=== PATIENT | female | born 1960 | race Caucasian/White ===

== ENCOUNTER 2016-07-17 17:55 | Inpatient (IN) ==
[2016-07-17] MEDS ORDERED: ATROVENT 0.02% NEB NEB STA (18:01)
[2016-07-17] MEDS ORDERED: ATROVENT 0.02% NEB NEB ONE (18:02)
--- NOTE | 2016-07-17 18:07 | ED.PDOC ---
General <LILIBETH BIRD - Last Filed: 07/17/16 20:47> Stated Complaint: short of air with productive cough of white phlegm and runny nose [End]1 day 98.8 102 24 91% 166/92 began using proair monday night used every four hours as prescribed Time Seen by Physician: 18:04 Mode of Arrival: Wheelchair Information Source: Patient Exam Limitations: No limitations Nursing and Triage Documentation Reviewed and Agree: No <ZULEIKA STANTON JR - Last Filed: 07/18/16 08:15> ED Provider: Dr. ZULEIKA STANTON JR ([facility] (ZULEIKA STANTON JR) Chief Complaint: Shortness of Air Primary Care [facility] ([place]OURTNEYLILIBETH GORDON) (ZULEIKA STANTON JR) Review of Systems - Review Of Systems Constitutional: Reports: Malaise Eyes: Reports: No symptoms Ears, Nose, Mouth, Throat: Reports: No symptoms Respiratory: Reports: Cough, Short of air, Wheezing Cardiac: Reports: No symptoms GI: Reports: No symptoms : Reports: No symptoms Musculoskeletal: Reports: No symptoms Skin: Reports: No symptoms Neurological: Reports: Anxiety, Emotional problems Endocrine: Reports: No symptoms Hematologic/Lymphatic: Reports: No symptoms All Other Systems: Other <ZULEIKA STANTON JR - Last Filed: 07/18/16 08:15> Past Medical History - Past Medical History Endocrine: Reports: Dyslipidemia Cardiovascular: Reports: Hypertension Respiratory: Reports: COPD, Asthma Hematological: Reports: Unknown Gastrointestinal: Reports: Unknown Genitourinary: Reports: Unknown Neuro/Psych: Reports: Unknown Musculoskeletal: Reports: Unknown Cancer: Reports: Unknown Last Menstrual Period: none Other Pertinent Past Medical History: loses control of her bladder whenshe coughs all over the place this morning - Surgical History General Surgical History: Reports: (x2 ), Other (breast surgery) - Family History Family History: Reports: Other (several family members with urti"cold" past month) - Social History Smoking Status: Current every day smoker, Heavy tobacco smoker Amount Smokes or Chewing Tobacco Used Daily: not for five houirs- note PFT statement allergic to albuterol patient agree Smoking Cessation Counseling Time: > 3 min - 10 min (but note is on albuterol MDI) Hx Substance Use: No Alcohol Screening: None <ZULEIKA STANTON JR - Last Filed: 07/18/16 08:15> Physical Exam - Physical Exam Appearance: Well-appearing, Obese Ill-appearing: Mild Pain Distress: Mild Eyes: XOCHITL, EOMI, Conjunctiva clear ENT: Ears normal, Nose normal, Oropharynx normal Neck: Supple Respiratory: Airway patent, Breath sounds equal, Breath sounds diminished, Rhonchi Cardiovascular: RRR, Pulses normal, No rub, No murmur GI/: Soft, Nontender, No masses, Bowel sounds normal, No Organomegaly Musculoskeletal: Normal strength, ROM intact, No edema, No calf tenderness Skin: Warm, Dry, Normal color Neurological: Sensation intact, Motor intact, Alert Psychiatric: Anxious <ZULEIKA STANTON JR Last Filed: 07/18/16 08:15> Interpretation - Radiology Interpretation Radiology Interpretation By: Radiologist Radiology Results: Negative Exam Interpreted: CT Scan <LILIBETH BIRD - Last Filed: 07/17/16 20:47> - Radiology Interpretation Radiology Interpretation By: ED Physician Radiology Results: Positive Exam Interpreted: CXR (hilar marking probably chronic) - EKG Interpretation Time of EKG #1: 18:29 Rate: Normal Rhythm: Sinus Ectopy: None [place]: NL ST Segment: Normal <ZULEIKA STANTON JR Last Filed: 07/18/16 08:15> Re-Evaluation - Re-Evaluation Time of Re-Evaluation: 19:10 Status: Improved (note pulse ox 93 on room air, patietn again without any leg pain or tenderness admits pain right lateral thigh this afternoon after sitting in a chair- better after lyingon her 's bed) <ZULEIKA STANTON JR - Last Filed: 07/18/16 08:15> Physician Notification - Case Discussed Physician Notified: dr [email or web address] Time of Notification: 20:47 <LILIBETH BIRD - Last Filed: 07/17/16 20:47> - Case Discussed Endorsed To/Discussed With: neda with dr oni dowling positive Time of Discussion: 19:07 <MAXIMINOZULEIKA FINE JR - Last Filed: 07/18/16 08:15> Critical Care Note - Critical Care Note Total Time (mins): 0 <MAXIMINOZULEIKA Rogers Last Filed: 07/18/16 08:15> Course - Course Hematology/Chemistry: 07/17/16 18:15 07/17/16 18:15 <LILIBETH BIRD - Last Filed: 07/17/16 20:47> - Course Hematology/Chemistry: 07/18/16 05:08 07/18/16 05:08 <ZULEIKA STANTON JR - Last Filed: 07/18/16 08:15> - Course Orders, Labs, Meds: Lab Review 07/17/16 07/17/16 17:57 18:15 WBC 11.16 H RBC 4.79 Hgb 14.5 Hct 44.8 MCV 93.5 MCH 30.3 MCHC 32.4 RDW Coeff of Malachi 13.3 Plt Count 367 Immature Gran % (Auto) 0.4 Neut % (Auto) 59.4 Lymph % (Auto) 30.3 [place] % (Auto) 8.3 Eos % (Auto) 0.7 Baso % (Auto) 0.9 Immature Gran # (Auto) 0.1 Neut # 6.6 Lymph # 3.4 [place] # 0.9 Eos # 0.1 Baso # 0.1 D-Dimer 489.78 H Puncture Site Rr O2 Saturation 91.0 L ABG pH 7.416 ABG pCO2 46.4 H ABG pO2 60.0 L ABG HCO3 29.8 H ABG Total CO2 31 H ABG Base Excess 5 H Gabriele Test + FiO2 % 21.0 Sodium 140 Potassium 3.7 Chloride 100 Carbon Dioxide 28 Anion Gap 15.7 BUN 9 Creatinine 0.79 Estimated GFR (MDRD) 76.00 BUN/Creatinine Ratio 11.39 Glucose 107 Calcium 9.4 Total Bilirubin 0.28 AST 17 ALT 24 Alkaline Phosphatase 90 Total Creatine Kinase 58 Troponin I < 0.0100 B-Natriuretic Peptide < 10 Total Protein 7.6 Albumin 3.7 Globulin 3.9 Albumin/Globulin Ratio 0.95 Orders Category Date Time Status ADMIT PATIENT INPATIENT .TO [facility] (MONITORED BED) ADMISSION 07/17/16 20: 48 Active ABG DRAW REQUEST Stat CARDIO 07/17/16 17:58 Completed EKG-(ED ONLY) Stat CARDIO 07/17/16 17:57 Completed NEBULIZER TREATMENT Routine CARDIO 07/17/16 20:50 Active NEBULIZER TREATMENT Stat CARDIO 07/17/16 18:01 Completed NEBULIZER TREATMENT Stat CARDIO 07/17/16 18:54 Completed OXYGEN Routine CARDIO 07/17/16 20:49 Active ACTIVITY .BR with BRP CARE 07/17/16 20:48 Completed INTAKE & OUTPUT Q8HR CARE 07/17/16 20:48 Completed NPO REMINDER: IMAGING ONCE CARE 07/17/16 19:05 Completed TELEMETRY MONITORING TELE CARE 07/17/16 20:48 Active VITAL SIGNS Q4HR CARE 07/17/16 20:48 Completed REGULAR DIET DIETARY 07/17/16 Breakfast Ordered OXYGEN [ED APPLY O2] .ONCE EMERGENCY 07/17/16 19:06 Active ABG Stat LAB 07/17/16 17:57 Completed B-TYPE NATRIURETIC PEPTIDE Stat LAB 07/17/16 18:15 Completed CBC W/ AUTO DIFF DAILY@0600 LAB 07/18/16 05:08 Completed CBC W/ AUTO DIFF DAILY@0600 LAB 07/19/16 06:00 Ordered CBC W/ AUTO DIFF DAILY@0600 LAB 07/20/16 06:00 Ordered CBC W/ AUTO DIFF DAILY@0600 LAB 07/21/16 06:00 Ordered CBC W/ AUTO DIFF DAILY@0600 LAB 07/22/16 06:00 Ordered CBC W/ AUTO DIFF DAILY@0600 LAB 07/23/16 06:00 Ordered CBC W/ AUTO DIFF DAILY@0600 LAB 07/24/16 06:00 Ordered CBC W/ AUTO DIFF DAILY@0600 LAB 07/25/16 06:00 Ordered CBC W/ AUTO DIFF DAILY@0600 LAB 07/26/16 06:00 Ordered CBC W/ AUTO DIFF DAILY@0600 LAB 07/27/16 06:00 Ordered CBC W/ AUTO DIFF DAILY@0600 LAB 07/28/16 06:00 Ordered CBC W/ AUTO DIFF DAILY@0600 LAB 07/29/16 06:00 Ordered CBC W/ AUTO DIFF DAILY@0600 LAB 07/30/16 06:00 Ordered CBC W/ AUTO DIFF DAILY@0600 LAB 07/31/16 06:00 Ordered CBC W/ AUTO DIFF DAILY@0600 LAB 08/01/16 06:00 Ordered CBC W/ AUTO DIFF DAILY@0600 LAB 08/02/16 06:00 Ordered CBC W/ AUTO DIFF DAILY@0600 LAB 08/03/16 06:00 Ordered CBC W/ AUTO DIFF DAILY@0600 LAB 08/04/16 06:00 Ordered CBC W/ AUTO DIFF DAILY@0600 LAB 08/05/16 06:00 Ordered CBC W/ AUTO DIFF DAILY@0600 LAB 08/06/16 06:00 Ordered CBC W/ AUTO DIFF Stat LAB 07/17/16 18:15 Completed COMPREHENSIVE METABOLIC PANEL DAILY@0600 LAB 07/18/16 05:08 Completed COMPREHENSIVE METABOLIC PANEL DAILY@0600 LAB 07/19/16 06:00 Ordered COMPREHENSIVE METABOLIC PANEL DAILY@0600 LAB 07/20/16 06:00 Ordered COMPREHENSIVE METABOLIC PANEL DAILY@0600 LAB 07/21/16 06:00 Ordered COMPREHENSIVE METABOLIC PANEL DAILY@0600 LAB 07/22/16 06:00 Ordered COMPREHENSIVE METABOLIC PANEL DAILY@0600 LAB 07/23/16 06:00 Ordered COMPREHENSIVE METABOLIC PANEL DAILY@0600 LAB 07/24/16 06:00 Ordered COMPREHENSIVE METABOLIC PANEL DAILY@0600 LAB 07/25/16 06:00 Ordered COMPREHENSIVE METABOLIC PANEL DAILY@0600 LAB 07/26/16 06:00 Ordered COMPREHENSIVE METABOLIC PANEL DAILY@0600 LAB 07/27/16 06:00 Ordered COMPREHENSIVE METABOLIC PANEL DAILY@0600 LAB 07/28/16 06:00 Ordered COMPREHENSIVE METABOLIC PANEL DAILY@0600 LAB 07/29/16 06:00 Ordered COMPREHENSIVE METABOLIC PANEL DAILY@0600 LAB 07/30/16 06:00 Ordered COMPREHENSIVE METABOLIC PANEL DAILY@0600 LAB 07/31/16 06:00 Ordered COMPREHENSIVE METABOLIC PANEL DAILY@0600 LAB 08/01/16 06:00 Ordered COMPREHENSIVE METABOLIC PANEL DAILY@0600 LAB 08/02/16 06:00 Ordered COMPREHENSIVE METABOLIC PANEL DAILY@0600 LAB 08/03/16 06:00 Ordered COMPREHENSIVE METABOLIC PANEL DAILY@0600 LAB 08/04/16 06:00 Ordered COMPREHENSIVE METABOLIC PANEL DAILY@0600 LAB 08/05/16 06:00 Ordered COMPREHENSIVE METABOLIC PANEL DAILY@0600 LAB 08/06/16 06:00 Ordered COMPREHENSIVE METABOLIC PANEL Stat LAB 07/17/16 18:15 Completed CREATINE KINASE Stat LAB 07/17/16 18:15 Completed D-DIMER Stat LAB 07/17/16 18:15 Completed TROPONIN I Stat LAB 07/17/16 18:15 Completed Albuterol Sulfate 0.042% Neb [Albuterol 0.042% Neb] MEDS 07/17/16 20:50 Active 1 vial NEB RTQ2H PRN Albuterol Sulfate 0.083% Neb [Albuterol 0.083% Neb] MEDS 07/17/16 18:28 Discontinued 1 vial NEB .STK-MED ONE Albuterol Sulfate 0.083% Neb [Albuterol 0.083% Neb] MEDS 07/17/16 18:54 Discontinued 1 vial NEB ONCE STA Atorvastatin Calcium [Lipitor] MEDS 07/18/16 09:00 Active 10 mg PO DAILY Azithromycin [Zithromax] MEDS 07/17/16 18:15 Discontinued 500 mg PO ONCE STA Ceftriaxone Sodium [Rocephin] 1 gm MEDS 07/18/16 09:00 Active 0.9 % Sodium Chloride [Sodium Chloride] 50 ml IV DAILY Enoxaparin Sodium [Lovenox] MEDS 07/17/16 21:00 Active 40 mg SUBCUT DAILY Ipratropium [place] 0.02% Neb [Atrovent 0.02% Neb] MEDS 07/17/16 18:02 Discontinued 1 vial NEB .STK-MED ONE Ipratropium [place] 0.02% Neb [Atrovent 0.02% Neb] MEDS 07/17/16 18:01 Discontinued 1 vial NEB ONCE STA Ipratropium/Albuterol Neb [Duoneb] MEDS 07/18/16 00:00 Active 1 vial NEB RTQ6H Methylprednisolone Sod Succ/Pf [Solu-Medrol 125 mg] MEDS 07/17/16 18:17 Discontinued 125 mg IVP ONCE STA Methylprednisolone Sod Succ/Pf [Solu-Medrol 40 mg] MEDS 07/18/16 00:00 Active 40 mg IVP Q6HR Sodium Chloride 0.9% [Sodium Chloride] 1,000 ml MEDS 07/17/16 21:00 Discontinued IV 75 mls/hr RESUSCITATION STATUS Routine OTHERS 07/17/16 20:48 Ordered CHEST, 1V AP ONLY Stat RADS 07/17/16 17:[address] CHEST PE PROTOCOL Stat RADS 07/17/16 19:04 Completed Medications Generic Name Dose Route Start Last Admin Trade Name Freq PRN Reason Stop Dose Admin Albuterol Sulfate 1 vial 07/17/16 20:50 Albuterol 0.042% Neb NEB RTQ2H PRN Wheezing Albuterol/Ipratropium 1 vial 07/18/16 00:00 07/18/16 04:57 Duoneb NEB 1 vial RTQ6H LIAT Administration Atorvastatin Calcium 10 mg 07/18/16 09:00 Lipitor PO DAILY LIAT Enoxaparin Sodium 40 mg 07/17/16 21:00 07/17/16 23:14 Lovenox SUBCUT 40 mg DAILY LIAT Administration Hydrochlorothiazide 25 mg 07/18/16 09:00 Hydrochlorothiazide PO DAILY LIAT Ceftriaxone Sodium 1 gm/ 50 mls @ 75 mls/hr 07/18/16 09:00 Sodium Chloride IV DAILY LIAT Multivitamins/Minerals 10 ml/ 1,010 mls @ 83 mls/hr 07/17/16 23:00 07/17/16 23:14 Potassium Chloride/Dextrose/ IV 83 mls/hr Sod Cl .[id number] LIAT Administration Lisinopril 20 mg 07/18/16 09:00 Zestril PO DAILY LIAT Methylprednisolone Sodium Succinate 40 mg 07/18/16 00:00 07/18/16 05:00 Solu-Medrol 40 Mg IVP 40 mg Q6HR LIAT Administration Discontinued Medications Generic Name Dose Route Start Last Admin Trade Name Freq PRN Reason Stop Dose Admin Albuterol Sulfate 1 vial 07/17/16 18:54 07/17/16 23:05 Albuterol 0.083% [facility] 07/17/16 18:55 Not Given ONCE STA Azithromycin 500 mg 07/17/16 18:15 07/17/16 18:43 Zithromax PO 07/17/16 18:16 500 mg ONCE STA Administration Sodium Chloride 1,000 mls @ 75 mls/hr 07/17/16 21:00 07/17/16 22:12 Sodium Chloride IV 75 mls/hr .[id number] LIAT Administration Ipratropium [place] 1 vial 07/17/16 18:01 07/17/16 18:30 Atrovent 0.02% [facility]ina [facility] 07/17/16 18:02 Not Given ONCE STA Methylprednisolone Sodium Succinate 125 mg 07/17/16 18:17 07/17/16 18:45 Solu-Medrol 125 Mg IVP 07/17/16 18:18 125 mg ONCE STA Administration (LILIBETH BIRD) (ZULEIKA STANTON JR) Vital Signs: Temp Pulse Resp BP Pulse Ox 07/17/16 17:55 98.8 F 102 H 24 166/92 H 91 L (LILIBETH BIRD) (ZULEIKA STANTON JR) Departure - Departure Time of Disposition: 20:47 Pt referred to PMD for follow-up: No Disposition Discussed With: Patient, Family <KOURTNEYLILIBETH CARPIO - Last Filed: 07/17/16 20:47> - Departure Pt referred to PMD for follow-up: No (hospitalist) Disposition Discussed With: Patient <ZULEIKA STANTON JR - Last Filed: 07/18/16 08:15> - Departure Disposition: ADMITTED INPATIENT Discharge Problem: COPD exacerbation Condition: Good Allergies/Adverse Reactions: Allergies Sulfa (Sulfonamide Antibiotics) Allergy (Severe, Verified 07/17/16 18:05) Anaphylaxis
[2016-07-17] MEDS ORDERED: ZITHROMAX PO STA (18:15)
[2016-07-17] MEDS ORDERED: SOLU-MEDROL 125 MG IVP STA (18:17)
[2016-07-17] MEDS ORDERED: ALBUTEROL 0.083% NEB NEB ONE (18:28)
[2016-07-17 18:30] LABS: ABG BASE EXCESS 5 (-2.0-2.0); ABG HCO3 29.8 (22.0-26.0); ABG PCO2 46.4 mmHg (35-45); ABG PH 7.416 (7.35-7.45); ABG TCO2 31 (22.0-28.0)
--- NOTE | 2016-07-17 18:47 | DI ---
EXAM: Chest one view HISTORY: Short of air, hypoxia COMPARISON: None TECHNIQUE: Single view of the chest was performed FINDINGS: The lungs are clear. There is no pleural effusion or pneumothorax. The heart is normal in size. The mediastinal contour is normal. There are no acute abnormalities of the bones. IMPRESSION: No acute cardiopulmonary process.
[2016-07-17 18:50] LABS: BASOPHILS # (AUTO) 0.1 K/uL (0-0.2); BASOPHILS % (AUTO) 0.9 % (0.0-3.0); EOSINOPHILS # (AUTO) 0.1 K/ul (0.0-0.7); EOSINOPHILS % (AUTO) 0.7 % (0.0-7.0); HEMATOCRIT 44.8 % (37.0-47.0); HEMOGLOBIN 14.5 g/dl (12.0-16.0); IMMATURE GRANULOCYTE % (AUTO) 0.4 % (0.0-5.0); LYMPHOCYTES # (AUTO) 3.4 K/uL (0.60-3.4); LYMPHOCYTES % (AUTO) 30.3 (10.0-50.0); MEAN CORPUSCULAR HEMOGLOBIN 30.3 pg (27.0-31.0); MEAN CORPUSCULAR HGB CONC 32.4 (31.8-35.4); MEAN CORPUSCULAR VOLUME 93.5 fl (81.0-99.0); MONOCYTES # (AUTO) 0.9 K/uL (0.4-2.0); MONOCYTES % (AUTO) 8.3 (0-10); NEUTROPHILS # (AUTO) 6.6 K/ul (2.0-6.9); NEUTROPHILS % (AUTO) 59.4; PLATELET COUNT 367 10^3/uL (140-440); RED BLOOD COUNT 4.79 10^6/ul (4.20-5.40); WHITE BLOOD COUNT 11.16 K/ul (4.6-10.2)
[2016-07-17] MEDS ORDERED: ALBUTEROL 0.083% NEB NEB STA (18:54)
[2016-07-17 18:55] LABS: ALANINE AMINOTRANSFERASE 24 U/L (12-78); ALBUMIN 3.7 g/dL (3.4-5.0); ALBUMIN/GLOBULIN RATIO 0.95; ALKALINE PHOSPHATASE 90 U/L (42-98); ANION GAP 15.7; ASPARTATE AMINO TRANSFERASE 17 U/L (15-37); BILIRUBIN,TOTAL 0.28 mg/dL (0.00-1.20); BLOOD UREA NITROGEN 9 mg/dL (7-18); BUN/CREATININE RATIO 11.39; CALCIUM 9.4 mg/dL (8.2-10.2); CARBON DIOXIDE 28 mmol/L (21-32); CHLORIDE 100 mmol/L (98-107); CREATINE KINASE 58 U/L; CREATININE 0.79 mg/dL (0.60-1.30); GLUCOSE 107 mg/dL (70-110); POTASSIUM 3.7 mmol/L (3.5-5.10); SODIUM 140 mmol/L (136-145); TOTAL PROTEIN 7.6 g/dL (6.4-8.2)
--- NOTE | 2016-07-17 20:28 | CT ---
EXAM: CT angiogram of the chest with intravenous contrast 07/17/2016. Multi planar reformatted micah ges obtained. MIP and three-dimensional reconstructed images provided HISTORY: Shortness of a air. Positive D-dimer COMPARISON: 07/17/2016 FINDINGS: The heart size appears within normal limits. No pericardial effusion. The aorta shows n o acute abnormality. There are no pulmonary arterial filling defects to suggest pulmonary embolus. Bilateral bronchial wall thickening. Correlate for bronchitis/bronchiolitis. No pulmonary consolidation, effusion or pneumothorax. Limited views of the upper abdomen show hepatic steatosis. IMPRESSION: 1. No pulmonary embolus. 2. Bilateral bronchial wall thickening. Correlate for bronchitis/bronchiolitis. 3. No focal pulmonary consolidation, effusion or pneumothorax.
[2016-07-17] MEDS ORDERED: ALBUTEROL 0.042% NEB NEB PRN (20:50)
[2016-07-17] MEDS ORDERED: SYMBICORT 160-4.5 MCG INHALER IH SCH (21:00)
[2016-07-17] MEDS ORDERED: SODIUM CHLORIDE 1,000 ML IV SCH (21:00)
[2016-07-17 22:02] VITALS: BMI 44.8
[2016-07-17] MEDS ORDERED: INFUVITE ADULT IV ONE (23:06)
[2016-07-17] MEDS: LOVENOX SUBCUT SCH (23:14)
[2016-07-17] MEDS: INFUVITE ADULT 10 ML in D5%-1/2NS-KCL 20 MEQ/L IV SOL 1,000 ML IV SCH (23:14)
[2016-07-17] MEDS ORDERED: DUONEB NEB ONE (23:17)
[2016-07-17] MEDS: DUONEB NEB SCH (23:19)
[2016-07-18] MEDS: SOLU-MEDROL 40 MG IVP SCH ×5 (00:52→23:44)
[2016-07-18] MEDS: DUONEB NEB SCH ×4 (04:57→23:20)
[2016-07-18 05:11] LABS: BASOPHILS % (AUTO) 0.3 % (0.0-3.0); HEMATOCRIT 42.2 % (37.0-47.0); HEMOGLOBIN 13.6 g/dl (12.0-16.0); IMMATURE GRANULOCYTE % (AUTO) 0.4 % (0.0-5.0); MEAN CORPUSCULAR HEMOGLOBIN 29.9 pg (27.0-31.0); MEAN CORPUSCULAR HGB CONC 32.2 (31.8-35.4); MEAN CORPUSCULAR VOLUME 92.7 fl (81.0-99.0); MONOCYTES # (AUTO) 0.1 K/uL (0.4-2.0); MONOCYTES % (AUTO) 0.6 (0-10); NEUTROPHILS # (AUTO) 8.6 K/ul (2.0-6.9); NEUTROPHILS % (AUTO) 88.7; PLATELET COUNT 325 10^3/uL (140-440); RED BLOOD COUNT 4.55 10^6/ul (4.20-5.40); WHITE BLOOD COUNT 9.64 K/ul (4.6-10.2)
[2016-07-18 05:28] LABS: ALBUMIN 3.3 g/dL (3.4-5.0); ALBUMIN/GLOBULIN RATIO 0.87; ANION GAP 13.7; BILIRUBIN,TOTAL 0.24 mg/dL (0.00-1.20); BUN/CREATININE RATIO 12.82; CALCIUM 9.3 mg/dL (8.2-10.2); CREATININE 0.78 mg/dL (0.60-1.30); POTASSIUM 3.7 mmol/L (3.5-5.10); TOTAL PROTEIN 7.1 g/dL (6.4-8.2)
[2016-07-18] MEDS: HYDROCHLOROTHIAZIDE PO SCH (09:57)
[2016-07-18] MEDS: ZESTRIL PO SCH (09:58)
[2016-07-18] MEDS: ROCEPHIN 1 GM in SODIUM CHLORIDE 50 ML IV SCH (09:58)
[2016-07-18] MEDS: LOVENOX SUBCUT SCH (09:58)
[2016-07-18] MEDS: LIPITOR PO SCH (09:58)
--- NOTE | 2016-07-18 11:59 | US ---
EXAM: ULTRASOUND LOWER EXTREMITY VENOUS DOPPLER EXAM HISTORY: Elevated D-dimer. FINDDINGS: Bilateral lower extremity venous Doppler exam. Real time alves-scale, Doppler spectral an alysis and color-flow Doppler imaging performed. The veins targeted for evaluation include the comm on femoral, greater saphenous, profundus, femoral, popliteal, peroneal, anterior tibial and posterio r tibial. The evaluated veins demonstrated normal spontaneous flow and compression without evidenc e of thrombosis. IMPRESSION: No venous thrombosis identified within the areas evaluated.
[2016-07-18] MEDS ORDERED: INFUVITE ADULT IV ONE (13:56)
[2016-07-18] MEDS: ZITHROMAX 500 MG in SODIUM CHLORIDE 250 ML IV SCH (14:30)
[2016-07-18] MEDS: INFUVITE ADULT 10 ML in D5%-1/2NS-KCL 20 MEQ/L IV SOL 1,000 ML IV SCH (14:56)
[2016-07-19] MEDS: DUONEB NEB SCH ×4 (03:55→23:10)
[2016-07-19 05:25] LABS: BASOPHILS % (AUTO) 0.1 % (0.0-3.0); HEMATOCRIT 42.4 % (37.0-47.0); HEMOGLOBIN 13.6 g/dl (12.0-16.0); IMMATURE GRANULOCYTE % (AUTO) 0.9 % (0.0-5.0); LYMPHOCYTES # (AUTO) 1.4 K/uL (0.60-3.4); LYMPHOCYTES % (AUTO) 8.2 (10.0-50.0); MEAN CORPUSCULAR HGB CONC 32.1 (31.8-35.4); MEAN CORPUSCULAR VOLUME 93.6 fl (81.0-99.0); MONOCYTES # (AUTO) 0.6 K/uL (0.4-2.0); MONOCYTES % (AUTO) 3.5 (0-10); NEUTROPHILS # (AUTO) 14.3 K/ul (2.0-6.9); NEUTROPHILS % (AUTO) 87.3; PLATELET COUNT 370 10^3/uL (140-440); RED BLOOD COUNT 4.53 10^6/ul (4.20-5.40); WHITE BLOOD COUNT 16.38 K/ul (4.6-10.2)
[2016-07-19] MEDS: SOLU-MEDROL 40 MG IVP SCH ×4 (05:36→23:19)
[2016-07-19 05:44] LABS: ALBUMIN 3.4 g/dL (3.4-5.0); ALBUMIN/GLOBULIN RATIO 0.94; ANION GAP 15.8; BILIRUBIN,TOTAL 0.23 mg/dL (0.00-1.20); CALCIUM 9.2 mg/dL (8.2-10.2); POTASSIUM 3.8 mmol/L (3.5-5.10)
[2016-07-19 05:45] LABS: BUN/CREATININE RATIO 15.38; CREATININE 0.78 mg/dL (0.60-1.30)
[2016-07-19] MEDS ORDERED: INFUVITE ADULT IV ONE ×2 (06:33→22:11)
[2016-07-19] MEDS: INFUVITE ADULT 10 ML in D5%-1/2NS-KCL 20 MEQ/L IV SOL 1,000 ML IV SCH ×2 (06:40→22:23)
[2016-07-19] MEDS: ZESTRIL PO SCH (10:04)
[2016-07-19] MEDS: ROCEPHIN 1 GM in SODIUM CHLORIDE 50 ML IV SCH (10:04)
[2016-07-19] MEDS: HYDROCHLOROTHIAZIDE PO SCH (10:04)
[2016-07-19] MEDS: LOVENOX SUBCUT SCH (10:05)
[2016-07-19] MEDS: LIPITOR PO SCH (10:05)
[2016-07-19] MEDS: ZITHROMAX 500 MG in SODIUM CHLORIDE 250 ML IV SCH ×2 (10:45→12:22)
--- NOTE | 2016-07-19 11:18 | PN ---
DATE OF VISIT: 07/18/16 This is the first time I have met this patient. She is alert, oriented times four and cheerful. She appears to be a good historian. She told me that she got sick about three days ago and presented to the emergency room because increasing shortness of breath. She denied any chest pain or abdominal pain. Her color is good. NECK: No masses and no bruit. LUNGS: Breath sounds are heard in both sides with minimal expiratory wheeze. HEART: Audible and regular with good tones. ABDOMEN: Protuberant, nontender. LOWER EXTREMITIES: Pedal pulses are present. The patient is a smoker and smoked until admission. I told her that she needs to stop since her lungs are already complaining and she is already taking medications to help her lungs. She was given inhalers because of the diagnosis of COPD. I informed her that every time you smoke or once people are smoking continuously that they do have what appeared to be a chronic bronchitis. COPD is a diagnosis confirmed by pulmonary function test. It can be inferred by auscultation and also by x-rays. She is not diabetic. I had reviewed the blood tests and her D-Dimer was markedly elevated at 489.78. I asked for a repeat today and also a sample to another facility for comparison. I had been informed by Bea Fine and Clara Cowart that they had seen D-Dimers as high as 1000 lately and two occasions about 600 or 700. The patient's CTA was negative for any pulmonary emboli. The Doppler studies of both lower extremities was negative for any thrombosis, deep or superficial. The patient remembered an injury to the upper medial leg about a month ago. There was some ecchymosis. The sugar was elevated, but this patient is getting Dextrose 5% and half saline IV. The patient denies any abdominal pain. The source for the D-Dimer rise at this time is not evident. CAITLIND
[2016-07-19] MEDS ORDERED: SYMBICORT 160-4.5 MCG INHALER IH SCH (21:00)
[2016-07-20] MEDS: DUONEB NEB SCH ×3 (05:12→17:05)
[2016-07-20 05:25] LABS: BASOPHILS % (AUTO) 0.2 % (0.0-3.0); HEMATOCRIT 42.3 % (37.0-47.0); HEMOGLOBIN 13.3 g/dl (12.0-16.0); IMMATURE GRANULOCYTE % (AUTO) 1.6 % (0.0-5.0); LYMPHOCYTES # (AUTO) 1.4 K/uL (0.60-3.4); LYMPHOCYTES % (AUTO) 7.9 (10.0-50.0); MEAN CORPUSCULAR HGB CONC 31.4 (31.8-35.4); MEAN CORPUSCULAR VOLUME 95.5 fl (81.0-99.0); MONOCYTES # (AUTO) 0.5 K/uL (0.4-2.0); NEUTROPHILS # (AUTO) 15.5 K/ul (2.0-6.9); NEUTROPHILS % (AUTO) 87.3; PLATELET COUNT 394 10^3/uL (140-440); RED BLOOD COUNT 4.43 10^6/ul (4.20-5.40); WHITE BLOOD COUNT 17.77 K/ul (4.6-10.2)
[2016-07-20 05:48] LABS: ALBUMIN 3.4 g/dL (3.4-5.0); ANION GAP 15.4; BILIRUBIN,TOTAL 0.18 mg/dL (0.00-1.20); BUN/CREATININE RATIO 17.56; CALCIUM 9.2 mg/dL (8.2-10.2); CREATININE 0.74 mg/dL (0.60-1.30); POTASSIUM 4.4 mmol/L (3.5-5.10); TOTAL PROTEIN 6.8 g/dL (6.4-8.2)
[2016-07-20] MEDS: SOLU-MEDROL 40 MG IVP SCH (06:10)
[2016-07-20] MEDS: LIPITOR PO SCH (08:27)
[2016-07-20] MEDS: HYDROCHLOROTHIAZIDE PO SCH (08:28)
[2016-07-20] MEDS: ZESTRIL PO SCH (08:28)
[2016-07-20] MEDS: LOVENOX SUBCUT SCH (08:28)
[2016-07-20] MEDS ORDERED: ROCEPHIN IM SCH (10:00)
[2016-07-20] MEDS ORDERED: ZITHROMAX PO SCH (10:00)
[2016-07-20] MEDS ORDERED: MUCINEX PO SCH (10:00)
[2016-07-20 10:50] VITALS: TEMP 98.1
[2016-07-20] MEDS: ROCEPHIN 1 GM in SODIUM CHLORIDE 50 ML IV SCH (11:04)
[2016-07-20] MEDS: ZITHROMAX 500 MG in SODIUM CHLORIDE 250 ML IV SCH (11:04)
[2016-07-20] MEDS: INFUVITE ADULT 10 ML in D5%-1/2NS-KCL 20 MEQ/L IV SOL 1,000 ML IV SCH (11:04)
[2016-07-20] MEDS ORDERED: SOLU-MEDROL 40 MG IM SCH (12:00)
[2016-07-20 13:53] VITALS: BP 138/84
[2016-07-21] MEDS ORDERED: LIDOCAINE 1 % AMP 5 ML (SUTURES) IM SCH (09:00)
--- NOTE | 2016-07-21 13:17 | HP ---
CHIEF COMPLAINT: Shortness of breath. HISTORY OF PRESENT ILLNESS: The patient, about two prior to presentation to the emergency room, had cough and some nasal congestion. The problem continued and she became short of breath a day before presentation to the emergency room. The patient after examination and testing was felt requiring admission and the patient was then admitted. The patient's vital signs on presentation to the emergency room showed a temperature of 98.8, pulse 102, respiratory rate 24 and described as labored, oxygen saturation 91 on room air. The patient had a chest x-ray, as well as CT of the chest showing no pulmonary embolus, bilateral bronchial wall thickening, correlate with bronchitis and bronchiolitis. No focal pulmonary consolidation, effusion or pneumothorax. Chest x-ray showed no acute cardiopulmonary process. Labs showed slight leukocytosis 11,160 on presentation. D-Dimer 489.78. Arterial blood gases with O2 saturation 91, FIO2 21, PO2 60, PCO2 46.4, pH 7.416. Cardiac enzymes plus BNP normal. PAST PERSONAL HISTORY: Tonsillectomy 1971, bronchitis or respiratory infection yearly, total abdominal hysterectomy and two previous C-sections. Hypertension , dyslipidemia, COPD, asthma. FAMILY HISTORY: Sister of malignancy at age 40. Mother had diabetes mellitus, as well as glaucoma. Father had hairy cell leukemia, as well as diabetes mellitus and seizure disorder. SOCIAL HISTORY: The patient is and resides with her . She smokes about a pack of cigarettes a day. Occasional alcoholic beverages. MEDICATIONS: Prior to this admission. Lipitor 10 mg daily Lisinopril/HCTZ 20/25 mg one daily Symbicort 160/4.5 mcg one puff twice a day ProAir Hfa 8.5 mg one puff every 4-6 hours prn Vitamin D2 50,000 IU weekly ALLERGIES: Sulfonamide REVIEW OF SYSTEMS: CONSTITUTIONAL: The patient had a low grade temperature with no chills and some fatigue because of the shortness of breath. S IRON WORKER: No significant headaches. No ataxia. No seizure disorder. VISUAL: Denies any blurred vision, double vision or transient loss of vision. AUDITORY: Hearing is adequate. Denies any tinnitus, pain or drainage. RESPIRATORY: The patient has cough with wheezing and shortness of breath. The patient has history of asthma. CARDIOVASCULAR: The patient denies any chest pain or chest oppression. No back pain. GASTROINTESTINAL: The patient has no significant nausea, no anorexia and no abdominal pain. No diarrhea. GENITOURINARY: No pain, frequency or urgency of urination. MUSCULOSKELETAL: Denies any significant joint or muscular pains. INTEGUMENT: Denies any rash or pruritus. ENDOCRINE: Negative, but the patient is obese with a BMI of 44.8. PSYCHIATRIC: Affect is normal. PHYSICAL EXAMINATION: GENERAL: We have a 55 year old female admitted to the hospital because of increasing shortness of breath with wheezing. VITAL SIGNS: Temperature 98.8, pulse 102, blood pressure 166/92, respiratory rate 24, oxygen saturation at 91%, FIO2 is 21. HEAD: Unremarkable. FACE: Symmetrical and equal with no facial weakness and no tenderness to palpation under pressure in the frontal or maxillary sinus areas. EYES: Pupils equal/reactive to light about 3 mm in size. Conjunctivae not pale. Sclerae not icteric. MOUTH: Unremarkable. THROAT: No inflammation, no tumors or exudate. NECK: No masses. No adenitis. No bruit. No tenderness. No rigidity. CHEST: Essentially symmetrical and equal with good expansion. LUNGS: Breath sounds are diminished with expiratory wheezing. No rales. HEART: Audible and regular with good tones, slightly tachycardic. No murmurs. ABDOMEN: Protuberant, soft with no remarkable tenderness. No guarding. Bowel sounds are active. No masses palpable. LOWER EXTREMITIES: Pedal pulses present in both feet. UPPER EXTREMITIES: Symmetrical and equal. ASSESSMENT: 1. ACUTE EXACERBATION OF CHRONIC BRONCHITIS 2. HISTORY OF ASTHMA WITH PROBABLE EXACERBATION 3. MARKEDLY ELEVATED BMI 44.8. 4. HYPERTENSION MTDD
--- NOTE | 2016-07-21 13:49 | DS ---
PATIENT IDENTIFICATION: 55 year old female who had been diagnosed with asthma and COPD presented to the emergency room because of increasing shortness of breath that began a day before. The patient had cold symptoms prior to that. She is receiving Albuterol puffer at home, as well as Symbicort 160/4.5 mcg. The patient's problem, however, had increased in spite of the above medications. She was then admitted to the hospital after a work-up. HOSPITAL COURSE: The patient's physical examination revealed a alert individual who is responsive and cheerful. She did have diminished breath sounds with expiratory wheezing in both lung taylor, as well as anteriorly. The heart is audible with good tones with no murmurs. The patient's work-up consisted of a chest x-ray showing no acute processes and chest CT which is essenitally unremarkable, except for the thickening of the bronchial healy signifying bronchitis. Venous Doppler of both lower extremities which was negative for DVT, as well as superficial. A D-Dimer was markedly elevated at 489.78. I had not seen these numbers before. The patient was given Solu-Medrol in the emergency room and this was continued in the hospital. The patient was treated with Zithromax 500 mg daily IV and Rocephin 1 gram daily IV beause of the thickened bronchial healy. She also received Solu -Medrol 40 mg IV every 6 hours. The patient on the following day 07/18/2016 felt some better. The Zithromax was discontinued since it she had received more than three days. The Rocephin was continued. She still had some wheezing , expiratory, in the upper posterior chest. The heart is audible with good tones. Vital signs at 6:00 07/18/2016 showed a temperature of 98, pulse 98, respiratory rate 22, oxygen saturation 89 at room air. Blood pressure 125/72. The patient is somewhat better in her general appearance and also claims to be feeling better. The patient desired to go home and the patient prior to discharge started to be alert and not in any distress and her color is good. The neck has no masses and no bruit. The lungs are markedly improved. Breath sounds are heard in both sides with minimal expiratory wheeze in the upper posterior chest. There are no rales. The heart is audible and regular with good tones. The cytomegalovirus and Macy-Montgomery virus antibodies were elevated and the fasting insulin level is elevated at 107. The patient at discharge was alert, ambulatory with movement of all extremities. The face is symmetrical and equal. Neck with no masses, no bruit and no rigidity. Chest is essentially symmetrical and equal with good expansion. Lungs with breath sounds heard in both sides, slightly diminished with some expiratory wheezing in the upper posterior chest taylor. Heart is audible and regular with good tones. The abdomen is nontender. PLAN: I explained to the patient that she should see the provider next week at the [facility]. She is prescribed the following medications: 1. Medrol Dose pack and take as directed. 2. Resume previous medications. 3. RX for Omnicef 300 mg one twice a day for 5 days. 4. RX for Albuterol 0.083% in 3 cc for nebulizer. 5. Mucinex 1200 mg twice a day. 6. Stop smoking. FINAL DIAGNOSES: 1. ACUTE EXACERBATION OF CHRONIC BRONCHITIS 2. ASTHMA WITH EXACERBATION 3. HYPERTENSION 4. MARKEDLY ELEVATED BMI 5. INSULIN RESISTANT SYNDROME PROGNOSIS: Guarded. MTDD
--- NOTE | 2016-07-21 13:57 | PN ---
DATE OF VISIT: 07/18/16 The patient, today, is looking much better. She is sitting in the bed. LUNGS: No rales. Air exchange is better. Very minimal expiratory wheeze in the upper posterior chest. HEART: Audible with good tones. VITAL SIGNS: At 5:20 p.m., temperature 98, pulse 91, blood pressure 128/80, respiratory rate 19, oxygen saturation 95 at 2.5 Liters per nasal oxygen. GENERAL CONDITION: Improved. WBC is higher, probably consequence of the steroid injection. The D-Dimer is down to 452.93 from 489.78. Doppler studies were done on account of the markedly elevated D-Dimer and the Doppler's are negative for any DVT on both lower extremities. No tenderness in the calf muscles. This patient is receiving Lovenox subcutaneously. MTDD
--- NOTE | 2016-07-21 14:21 | PN ---
DATE OF VISIT: 07/19/16 The patient is alert and not dyspneic, nor tachypneic, but has nasal oxygen at 2 Liters. She claims that she is feeling better and seemed to be willing to go home. I told her we will see how she does the next day. NECK: No masses and no bruit. LUNGS: Breath sounds are heard in both sides with very occasional expiratory wheeze of the upper posterior chest. No rales. HEART: Audible and regular with good tones. ABDOMEN: No remarkable tenderness. Blood sugar today, fasting, was 148, probably secondary to the steroids. A fasting insulin level was obtained and it is 107.0 in the upper normal for this and in this hospital it is 24.9. 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 This patient's viral studies showed an elevated CMV, IGG 4.30. Elevated EBV. Early antigen IGG antibody 13.4 and Macy Montgomery virus nuclear antigen antibody beyond 600. The upper normal is 0.9. MTDD
== END 2016-07-20 18:00 | disposition home or self-care (01) | DRG 192 ==
LOC: ED 17:55 → MEDSURG B 20:57
PROVIDERS: ADMIT General Practice; ATTEND General Practice
DX: J44.1 Chronic obstructive pulmonary disease with (acute) exacerbation (principal); J45.909 Unspecified asthma, uncomplicated; R06.02 Shortness of breath; R79.1 Abnormal coagulation profile; R63.8 Other symptoms and signs concerning food and fluid intake; I10 Essential (primary) hypertension; E88.81 Metabolic syndrome and other insulin resistance; R73.9 Hyperglycemia, unspecified; F17.210 Nicotine dependence, cigarettes, uncomplicated; Z79.899 Other long term (current) drug therapy
CPT/HCPCS: 36415; 80053; 82550; 82803; 83036; 83525; 83880; 84484; 85025; 85379; 86644; 86663; 86664; 86710; 93005; 93010; 94640; 96365; 96375; 99223; 99232; 99239; 99284; 99285

== ENCOUNTER 2016-08-10 06:30 | Outpatient (CLI) ==
[2016-08-10 06:52] LABS: BILIRUBIN,URINE 1+ (NEGATIVE); KETONES,URINE Negative (NEGATIVE); LEUKOCYTE ESTERASE ,URINE Negative (NEGATIVE); NITRITE,URINE Negative (NEGATIVE); PH,URINE 5.5 (5-9); PROTEIN,URINE 1+ (NEGATIVE); URINE, BLOOD Negative (NEGATIVE)
[2016-08-10 06:53] LABS: BASOPHILS # (AUTO) 0.1 K/uL (0-0.2); BASOPHILS % (AUTO) 0.6 % (0.0-3.0); EOSINOPHILS # (AUTO) 0.2 K/ul (0.0-0.7); EOSINOPHILS % (AUTO) 1.5 % (0.0-7.0); HEMATOCRIT 39.7 % (37.0-47.0); HEMOGLOBIN 12.9 g/dl (12.0-16.0); IMMATURE GRANULOCYTE % (AUTO) 0.4 % (0.0-5.0); LYMPHOCYTES # (AUTO) 3.3 K/uL (0.60-3.4); LYMPHOCYTES % (AUTO) 31.8 (10.0-50.0); MEAN CORPUSCULAR HEMOGLOBIN 30.4 pg (27.0-31.0); MEAN CORPUSCULAR HGB CONC 32.5 (31.8-35.4); MEAN CORPUSCULAR VOLUME 93.4 fl (81.0-99.0); MONOCYTES # (AUTO) 0.5 K/uL (0.4-2.0); MONOCYTES % (AUTO) 4.5 (0-10); NEUTROPHILS # (AUTO) 6.3 K/ul (2.0-6.9); NEUTROPHILS % (AUTO) 61.2; PLATELET COUNT 319 10^3/uL (140-440); RED BLOOD COUNT 4.25 10^6/ul (4.20-5.40); WHITE BLOOD COUNT 10.33 K/ul (4.6-10.2)
[2016-08-10 06:55] LABS: ADD URINE MICROSCOPIC YES; BACTERIA,URINE TRACE (NOT PRESENT)
[2016-08-10 07:12] LABS: ALBUMIN 3.1 g/dL (3.4-5.0); ALBUMIN/GLOBULIN RATIO 0.86; ANION GAP 12.1; BILIRUBIN,TOTAL 0.49 mg/dL (0.00-1.20); BUN/CREATININE RATIO 15.18; CALCIUM 9.7 mg/dL (8.2-10.2); CHOL/HDL RATIO 3.7 (4.5-5.5); CREATININE 0.79 mg/dL (0.60-1.30); POTASSIUM 4.1 mmol/L (3.5-5.10); TOTAL PROTEIN 6.7 g/dL (6.4-8.2)
== END 2016-08-10 06:31 | disposition home or self-care (01) ==
LOC: LAB 06:30
PROVIDERS: ATTEND Nurse Practitioner Family
DX: D72.829 Elevated white blood cell count, unspecified (principal); E78.5 Hyperlipidemia, unspecified; I10 Essential (primary) hypertension; J44.9 Chronic obstructive pulmonary disease, unspecified
CPT/HCPCS: 36415; 80053; 80061; 81001; 85025

== ENCOUNTER 2016-09-29 06:19 | Outpatient (CLI) ==
[2016-09-29 07:16] LABS: ALBUMIN 3.2 g/dL (3.4-5.0); ALBUMIN/GLOBULIN RATIO 0.97; ANION GAP 10.8; BILIRUBIN,TOTAL 0.35 mg/dL (0.00-1.20); BUN/CREATININE RATIO 18.18; CALCIUM 8.6 mg/dL (8.2-10.2); CHOL/HDL RATIO 2.7 (4.5-5.5); CREATININE 0.77 mg/dL (0.60-1.30); POTASSIUM 3.8 mmol/L (3.5-5.10); TOTAL PROTEIN 6.5 g/dL (6.4-8.2)
== END 2016-09-29 06:20 | disposition home or self-care (01) ==
LOC: LAB 06:19
PROVIDERS: ATTEND Nurse Practitioner Family
DX: E78.5 Hyperlipidemia, unspecified (principal)
CPT/HCPCS: 36415; 80053; 80061

== ENCOUNTER 2016-11-24 11:51 | Outpatient (CLI) ==
[2016-11-24 12:49] LABS: FLU INTERNAL QC INTERNAL QC VALID; RAPID FLU A NEGATIVE (NEGATIVE); RAPID FLU B NEGATIVE (NEGATIVE)
== END 2016-11-24 11:52 | disposition home or self-care (01) ==
LOC: LAB 11:51
PROVIDERS: ATTEND Nurse Practitioner Family
DX: J02.9 Acute pharyngitis, unspecified (principal); R50.9 Fever, unspecified; R52 Pain, unspecified; R68.83 Chills (without fever)
CPT/HCPCS: 87651; 87804; 87880

== ENCOUNTER 2016-12-02 07:57 | Outpatient (CLI) ==
--- NOTE | 2016-12-04 15:39 | MAMMO ---
EXAM: Bilateral digital screening mammogram History: Screening Comparison: Bilateral mammogram 05/28/2014 Findings: MLO and CC views of bilateral breasts demonstrate predominately fatty replaced breast par enchyma. There are no dominant masses, no suspicious microcalcifications and no architectural disto rtions Findings: Stable negative mammogram. Recommend followup routine screening mammography in 1 year. BIRADS 1
== END 2016-12-02 07:58 ==
LOC: RAD 07:57
PROVIDERS: ATTEND Nurse Practitioner Family
DX: Z12.31 Encounter for screening mammogram for malignant neoplasm of breast (principal); R53.83 Other fatigue
CPT/HCPCS: 36415; 82306

== ENCOUNTER 2016-12-08 12:25 | Outpatient (CLI) ==
[2016-12-08 14:53] LABS: ADD URINE MICROSCOPIC YES; BILIRUBIN,URINE Negative (NEGATIVE); KETONES,URINE Negative (NEGATIVE); LEUKOCYTE ESTERASE ,URINE 1+ (NEGATIVE); NITRITE,URINE Negative (NEGATIVE); PROTEIN,URINE 1+ (NEGATIVE); URINE, BLOOD 3+ (NEGATIVE)
[2016-12-08 14:58] LABS: BACTERIA,URINE 2+ (NOT PRESENT)
== END 2016-12-08 12:26 | disposition home or self-care (01) ==
LOC: LAB 12:25
PROVIDERS: ATTEND Nurse Practitioner Family
DX: R31.9 Hematuria, unspecified (principal); R80.9 Proteinuria, unspecified
CPT/HCPCS: 81001; 87086; 87186

== ENCOUNTER 2017-01-06 11:23 | Outpatient (CLI) ==
[2017-01-06 12:00] LABS: BASOPHILS # (AUTO) 0.1 K/uL (0-0.2); BASOPHILS % (AUTO) 0.6 % (0.0-3.0); EOSINOPHILS # (AUTO) 0.1 K/ul (0.0-0.7); HEMATOCRIT 40.4 % (37.0-47.0); HEMOGLOBIN 13.2 g/dl (12.0-16.0); IMMATURE GRANULOCYTE % (AUTO) 0.5 % (0.0-5.0); LYMPHOCYTES # (AUTO) 3.7 K/uL (0.60-3.4); LYMPHOCYTES % (AUTO) 28.5 (10.0-50.0); MEAN CORPUSCULAR HEMOGLOBIN 30.3 pg (27.0-31.0); MEAN CORPUSCULAR HGB CONC 32.7 (31.8-35.4); MEAN CORPUSCULAR VOLUME 92.9 fl (81.0-99.0); MONOCYTES # (AUTO) 0.7 K/uL (0.4-2.0); MONOCYTES % (AUTO) 5.5 (0-10); NEUTROPHILS # (AUTO) 8.2 K/ul (2.0-6.9); NEUTROPHILS % (AUTO) 63.9; PLATELET COUNT 362 10^3/uL (140-440); RED BLOOD COUNT 4.35 10^6/ul (4.20-5.40); WHITE BLOOD COUNT 12.82 K/ul (4.6-10.2)
[2017-01-06 12:21] LABS: ALBUMIN 3.6 g/dL (3.4-5.0); ALBUMIN/GLOBULIN RATIO 0.92; ANION GAP 16.8; BILIRUBIN,TOTAL 0.31 mg/dL (0.00-1.20); BUN/CREATININE RATIO 15.18; CALCIUM 9.7 mg/dL (8.2-10.2); CREATININE 0.79 mg/dL (0.60-1.30); POTASSIUM 3.8 mmol/L (3.5-5.10); TOTAL PROTEIN 7.5 g/dL (6.4-8.2)
== END 2017-01-06 11:24 | disposition home or self-care (01) ==
LOC: LAB 11:23
PROVIDERS: ATTEND Nurse Practitioner Family
DX: R60.9 Edema, unspecified (principal); K14.0 Glossitis
CPT/HCPCS: 36415; 80053; 83540; 83550; 83880; 85025; 93005; 93010

== ENCOUNTER 2017-01-17 06:33 | Outpatient (CLI) ==
--- NOTE | 2017-01-18 09:22 | ECHO2D ---
Date of Exam: 01/17/17 Ordering Physician: RHLeodan BALDERAS Reason for Echo: PALPITATIONS M-Mode Normal Adult Results LV Dimensions Normal Adult Results AoV Opening excursions >1.6 >1.6 LVEDD-base- 3.5-5.8 4.3 Ao root dimensions 2.0-3.7 2.9 LVESD-base- 3.1-4.6 L. Atrium dimensions 1.9-3.8 4.1 Post. Wall thickness 0.8-1.1 1.2 IV septum (thickness) 0.7-1.2 1.2 Post. Wall excursion 0.72-1.3 NORMAL Septal motion NORMAL Systolic motion R. Ventricular cavity 1.5-2.0 NORMAL LVEF 60% 61% Paradoxical septal wall motion NORMAL 2-D : 2-D M Mode Echocardiogram was performed using apical four chamber and left parasternal long and short axis views. Mitral, tricuspid and aortic valves appear to be normal. Contractility of the left ventricle seems to be normal, so is the cavity size. ENLARGED LEFT ATRIAL CAVITY, aortic root appears to be normal. There is no pericardial effusion. There is no thrombus noted in the left ventricular or left aortic cavity. No mitral valve prolapse noted. M-MODE: MV: NORMAL AV: NORMAL TV: NORMAL PV: CHAMBER SIZE: ENLARGED LEFT ATRIAL CAVITY WALL MOTION: NORMAL PERICARDIUM: NORMAL INTERPRETATION: 1. BORDERLINE LEFT VENTRICULAR HYPERTROPHY 2. ENLARGED LEFT ATRIAL CAVITY 3. NORMAL LEFT VENTRICULAR CONTRACTILITY 4. NORMAL VALVES MTDD
== END 2017-01-17 06:34 | disposition home or self-care (01) ==
LOC: CAR 06:33
PROVIDERS: ATTEND Nurse Practitioner Family
DX: R00.2 Palpitations (principal); I49.8 Other specified cardiac arrhythmias

== ENCOUNTER 2017-08-10 22:42 | Outpatient (CLI) ==
[2017-08-11 14:02] VITALS: BMI 48.4
== END 2017-08-10 22:43 | disposition left against medical advice (07) ==
LOC: AMBL 22:42
PROVIDERS: ATTEND Family Medicine
DX: R55 Syncope and collapse (principal); R52 Pain, unspecified; R19.7 Diarrhea, unspecified; R05 Cough; R11.2 Nausea with vomiting, unspecified

== ENCOUNTER 2017-08-11 13:38 | Outpatient (CLI) ==
[2017-08-11 14:02] VITALS: BMI 48.4
== END 2017-08-11 13:39 | disposition critical access hospital (66) ==
LOC: AMBL 13:38
PROVIDERS: ATTEND Internal Medicine
DX: R53.1 Weakness (principal); R68.89 Other general symptoms and signs; R19.7 Diarrhea, unspecified; R50.9 Fever, unspecified

== ENCOUNTER 2017-08-11 13:57 | Inpatient (IN) ==
[2017-08-11 14:02] VITALS: BMI 48.4
[2017-08-11] MEDS ORDERED: DUONEB NEB STA (14:11)
--- NOTE | 2017-08-11 15:06 | CT ---
EXAM: CT THORAX HISTORY: Shortness of breath and nausea with fever and diarrhea. TECHNIQUE: CT thorax without intravenous contrast. Multiplanar images presented. Coronal and sagit kushal re-formations. COMPARISON: 07/17/2016 FINDINGS: Heart size is normal with no pericardial effusion. Thoracic aorta has mild atherosclerosis. A few n onspecific mildly prominent mediastinal and hilar lymph nodes. There is subtle thickening in the lingular region and mild atelectasis in the right middle lobe. Elvira gs are otherwise clear. Normal vascularity. No pleural fluid or pneumothorax. Bones reveal no acute abnormalities. Incidental note of fatty liver. IMPRESSION: 1. Subtle interstitial thickening in the lingular region could represent minimal pneumonia. Scarrin g could appear similar. There is mild atelectasis in the right middle lobe, versus less likely focal pneumonia. 2. A few prominent nonspecific mediastinal lymph nodes are probably stable. 3. Fatty liver.
[2017-08-11] MEDS ORDERED: POTASSIUM CHLORIDE PREMIX RUN 10 MEQ in PREMIX 100 ML WATER 1 BAG IV STA (15:23)
[2017-08-11] MEDS ORDERED: ROCEPHIN 1 GM in SODIUM CHLORIDE 50 ML IV STA (15:24)
--- NOTE | 2017-08-11 15:27 | ED.PDOC ---
General ED Provider: Dr. GWEN CELESTIN Chief Complaint: Nausea/Vomiting Stated Complaint: DIARRHEA , FLU LIKE SYMPTOMS Time Seen by Physician: 14:00 Mode of Arrival: Stretcher Information Source: Patient Exam Limitations: No limitations [facility] and T[facility] Documentation Reviewed and Agree: Yes Reviewed sepsis parameters & appropriate labs ordered?: Yes (SEEN WITH STAFF AT ALL TIMES ) System Inflammatory Response Syndrome: Not Applicable Sepsis Protocol: For patient's 13 years and over: Temp is 96.8 and below OR 101 and greater Pulse >90 BPM Resp >20/minute Acutely Altered Mental Status Are patient's symptoms suggestive of a new infection, such as: -Pneumonia -Skin, Soft Tissue -Endocarditis -UTI -Bone, Joint Infection -Implantable Device -Acute Abdominal Infection -Wound Infection -Meningitis -Blood Stream Catheter Infection -Unknown System Inflammatory Response Syndrome: Not Applicable Respiratory Complaint Exam - Respiratory Complaint/Exam Onset/Duration: 1 WEEK Symptoms Are: Still present Timing: Intermittent Initial Severity: Moderate Current Severity: Mild Location: Nose, Throat, Chest Character: Reports: Non-productive cough, Dry cough Aggravating: Reports: URI Alleviating: Reports: Bronchodilators Associated Signs and Symptoms: Reports: URI, Nasal congestion Related History: Reports: Similar episode History of Healthcare-Acquired Pneumonia: No Related Surgical History: Reports: None Pulmonary Embolism Risk Factors: Bedrest Cardiac Risk Factors: Reports: Elevated lipids, Hypertension Pseudomonas Risk Factors: Reports: None Tuberculosis Risk Factors: Reports: Diabetes, Chronic Resp. Faliure Status Asthmaticus Risk Factors: Reports: None Home Oxygen Use: No Recent Stress Test: No Recent Echo/LV Function: No Current Antibiotic Use: No Current Asthma Medication Use: No Respiratory Distress: None Inadequate Respiratory Effort: No Dysphagia Present: No Stridor Present: No JVD Present: No Retractions: Not Present Diminished Breath Sounds: No Prolonged Respiration: Expiratory phase Sinus Tenderness: None Grunting Respirations: No Kussmaul Respirations: No Differential Diagnoses: Pneumonia, Bronchitis Non-Traumatic Chest Pain Syncope: EKG Performed Review of Systems - Review Of Systems Constitutional: Reports: Malaise, Weakness, Loss of appetite Eyes: Reports: No symptoms Ears, Nose, Mouth, Throat: Reports: No symptoms Respiratory: Reports: Cough, Wheezing Cardiac: Reports: No symptoms GI: Reports: Diarrhea : Reports: No symptoms Musculoskeletal: Reports: No symptoms Skin: Reports: No symptoms Neurological: Reports: No symptoms Endocrine: Reports: No symptoms Hematologic/Lymphatic: Reports: No symptoms All Other Systems: Reviewed and Negative Past Medical History - Past Medical History Previously Healthy: Yes Endocrine: Reports: Dyslipidemia Cardiovascular: Reports: Hypertension Respiratory: Reports: COPD, Asthma Hematological: Reports: Unknown Gastrointestinal: Reports: Unknown Genitourinary: Reports: Unknown Neuro/Psych: Reports: Unknown Musculoskeletal: Reports: Unknown Cancer: Reports: Unknown Last Menstrual Period: menopause Other Pertinent Past Medical History: loses control of her bladder whenshe coughs all over the place this morning - Surgical History General Surgical History: Reports: (x2 ), Other (breast surgery) - Family History Family History: Reports: Other (several family members with urti"cold" past month) - Social History Smoking Status: Former smoker Hx Substance Use: No Alcohol Screening: None Physical Exam - Physical Exam Appearance: Ill-appearing Ill-appearing: Mild Pain Distress: Moderate Eyes: XOCHITL, EOMI, Conjunctiva clear ENT: Ears normal, Nose normal, Oropharynx normal Respiratory: Wheezes Cardiovascular: RRR, Pulses normal, No rub, No murmur GI/: Soft, Nontender, No masses, Bowel sounds normal, No Organomegaly Musculoskeletal: Normal strength, ROM intact, No edema, No calf tenderness Skin: Warm, Dry, Normal color Neurological: Sensation intact, Motor intact, Reflexes intact, Cranial nerves intact, Alert, Oriented Psychiatric: Affect appropriate, Mood appropriate Interpretation - Radiology Interpretation Radiology Interpretation By: Radiologist Radiology Results: Positive (PNEUMONIA) Physician Notification - Case Discussed Physician Notified: PMD Time of Notification: 15:27 Admit To: Inpatient Critical Care Note - Critical Care Note Total Time (mins): 0 Course - Course Hematology/Chemistry: 08/11/17 14:20 08/11/17 14:20 Orders, Labs, Meds: Lab Review 08/11/17 08/11/17 14:20 14:20 WBC 6.06 RBC 4.05 L Hgb 12.2 Hct 36.5 L MCV 90.1 MCH 30.1 MCHC 33.4 RDW Coeff of Malachi 13.8 Plt Count 237 Immature Gran % (Auto) 0.3 Neut % (Auto) 67.2 Lymph % (Auto) 22.6 Screven % (Auto) 9.6 Eos % (Auto) 0.0 Baso % (Auto) 0.3 Immature Gran # (Auto) 0.0 Neut # 4.1 Lymph # 1.4 Screven # 0.6 Eos # 0.0 Baso # 0.0 Sodium 140 Potassium 2.7 L* Chloride 93 L Carbon Dioxide 36 H Anion Gap 13.7 BUN 9 Creatinine 0.84 Estimated GFR (MDRD) 70.00 BUN/Creatinine Ratio 10.71 Glucose 124 H Calcium 8.8 Total Bilirubin 0.3 AST 38 H ALT 43 Alkaline Phosphatase 89 Total Protein 6.8 Albumin 3.2 L Globulin 3.6 Albumin/Globulin Ratio 0.89 Orders Category Date Time Status NEBULIZER TREATMENT Stat CARDIO 08/11/17 14:11 Ordered NEBULIZER TREATMENT Stat CARDIO 08/11/17 15:24 Ordered BLOOD CULTURE (ED ONLY) Stat LAB 08/11/17 14:55 Received CBC W/ AUTO DIFF Stat LAB 08/11/17 14:20 Completed COMPREHENSIVE METABOLIC PANEL Stat LAB 08/11/17 14:20 Completed FLU A/B MOLECULAR Stat LAB 08/11/17 15:00 Received LACTIC ACID Stat LAB 08/11/17 15:00 Received MOLECULAR GROUP A STREP Stat LAB 08/11/17 15:00 Completed PROCALCITONIN Stat LAB 08/11/17 14:20 Received Ceftriaxone Sodium [Rocephin] 1 gm MEDS 08/11/17 15:24 Ordered 0.9 % Sodium Chloride [Sodium Chloride] 50 ml IV ONCE Ipratropium/Albuterol Neb [Duoneb] MEDS 08/11/17 14:11 Discontinued 1 vial NEB ONCE STA Ipratropium/Albuterol Neb [Duoneb] MEDS 08/11/17 18:00 Ordered 1 vial NEB RTQ6H Potassium Chloride [Potassium Chloride Premix Run] 10 MEDS 08/11/17 15:23 Ordered meq Premix 100 ml Water [address] CHEST W/O CONTRAST Stat RADS 08/11/17 14:10 Completed Medications Generic Name Dose Route Start Last Admin Trade Name Freq PRN Reason Stop Dose Admin Albuterol/Ipratropium 1 vial 08/11/17 18:00 Duoneb NEB RTQ6H LIAT Potassium Chloride 10 meq/ 100 mls @ 100 mls/hr 08/11/17 15:23 Sterile Water IV 08/11/17 16:22 ONCE STA Ceftriaxone Sodium 1 gm/ 50 mls @ 75 mls/hr 08/11/17 15:24 Sodium Chloride IV 08/11/17 16:03 ONCE STA Discontinued Medications Generic Name Dose Route Start Last Admin Trade Name Freq PRN Reason Stop Dose Admin Albuterol/Ipratropium 1 vial 08/11/17 14:11 08/11/17 15:07 Duoneb NEB 08/11/17 14:12 1 vial ONCE STA Administration Vital Signs: Temp Pulse Resp BP Pulse Ox 08/11/17 13:57 99.7 F H 95 H 20 127/61 90 L Departure - Departure Time of Disposition: 15:27 Disposition: ADMITTED INPATIENT Discharge Problem: Hypokalemia Pneumonia Qualifiers: Pneumonia type: due to unspecified organism Instructions: Pneumonia (ED) Condition: Good Pt referred to PMD for follow-up: Yes IPMP verified?: Yes Additional Instructions: Please call your Family Physician as soon as possible to schedule a follow-up appointment. Allergies/Adverse Reactions: Allergies Sulfa (Sulfonamide Antibiotics) Allergy (Severe, Verified 08/11/17 14:03) Anaphylaxis Disposition Discussed With: Patient
[2017-08-11] MEDS ORDERED: SOLU-MEDROL 40 MG IVP SCH (15:30)
[2017-08-11] MEDS ORDERED: POTASSIUM CHLORIDE PREMIX RUN 100 ML IV ONE (15:43)
[2017-08-11] MEDS: ZOFRAN 4 MG/2 ML IVP SCH (17:33)
[2017-08-11] MEDS: DUONEB NEB SCH ×2 (17:58→23:40)
[2017-08-11] MEDS ORDERED: ROCEPHIN ONE (18:48)
[2017-08-11] MEDS ORDERED: SODIUM CHLORIDE 50 ML IV ONE (19:01)
[2017-08-11] MEDS ORDERED: VANCOMYCIN 1,000 MG in SODIUM CHLORIDE 200 ML IV SCH (20:00)
[2017-08-12] MEDS: ZOFRAN 4 MG/2 ML IVP SCH ×3 (02:05→15:49)
[2017-08-12] MEDS: DUONEB NEB SCH ×4 (04:50→23:00)
[2017-08-12] MEDS: SOLU-MEDROL 40 MG IVP SCH ×3 (05:18→20:40)
[2017-08-12] MEDS: ZESTRIL PO SCH (09:46)
[2017-08-12] MEDS: LIPITOR PO SCH (09:46)
[2017-08-12] MEDS: HYDROCHLOROTHIAZIDE PO SCH (09:47)
[2017-08-12] MEDS: VANCOMYCIN 1 GM in SODIUM CHLORIDE 250 ML IV SCH ×2 (09:50→20:39)
[2017-08-12] MEDS ORDERED: K-DUR PO STA (21:53)
[2017-08-12] MEDS ORDERED: ROCEPHIN 1 GM in SODIUM CHLORIDE 50 ML IV SCH (22:00)
[2017-08-13] MEDS ORDERED: ROCEPHIN ONE (01:35)
[2017-08-13] MEDS: ZOFRAN 4 MG/2 ML IVP SCH ×4 (01:57→23:44)
[2017-08-13] MEDS: DUONEB NEB SCH ×4 (04:46→23:55)
[2017-08-13] MEDS ORDERED: K-DUR PO STA (08:28)
[2017-08-13] MEDS: HYDROCHLOROTHIAZIDE PO SCH (09:03)
[2017-08-13] MEDS: ZESTRIL PO SCH (09:03)
[2017-08-13] MEDS: LIPITOR PO SCH (09:03)
[2017-08-13] MEDS: VANCOMYCIN 1 GM in SODIUM CHLORIDE 250 ML IV SCH ×2 (09:04→21:17)
[2017-08-13] MEDS: SOLU-MEDROL 40 MG IVP SCH ×2 (09:05→20:11)
[2017-08-13] MEDS: MUCINEX PO SCH ×2 (09:07→20:11)
[2017-08-13] MEDS: ROCEPHIN 1 GM in SODIUM CHLORIDE 50 ML IV SCH (20:11)
[2017-08-14] MEDS: DUONEB NEB SCH ×3 (06:10→18:29)
[2017-08-14] MEDS: MUCINEX PO SCH ×2 (09:50→20:39)
[2017-08-14] MEDS: HYDROCHLOROTHIAZIDE PO SCH (09:50)
[2017-08-14] MEDS: ZOFRAN 4 MG/2 ML IVP SCH ×3 (09:50→23:34)
[2017-08-14] MEDS: ZESTRIL PO SCH (09:51)
[2017-08-14] MEDS: LIPITOR PO SCH (09:51)
[2017-08-14] MEDS: SOLU-MEDROL 40 MG IVP SCH ×2 (09:52→20:38)
[2017-08-14] MEDS: LIBRIUM PO SCH ×2 (10:00→20:39)
[2017-08-14] MEDS: VANCOMYCIN 1 GM in SODIUM CHLORIDE 250 ML IV SCH ×2 (10:15→21:33)
--- NOTE | 2017-08-14 13:12 | DI ---
Exam: Two x-rays of the chest. Comparison: CT chest performed 08/11/2017. Reason for exam: Cough, congestion. FINDINGS: No pneumothorax, pleural effusion, or focal consolidation. The cardiac silhouette is not enlarged. The imaged osseous structures appear grossly unremarkable without acute fracture. Impression: No acute cardiopulmonary process.
--- NOTE | 2017-08-14 15:07 | PN ---
DATE OF SERVICE: 08/12/17 SUBJECTIVE: The patient was admitted with Flu and pneumonia and severe hypokalemia. The patient's potassium is 2.9 getting K-Dur 40meq today. After getting IV potassium yesterday potassium is 2.9 will given K-Dur today. REVIEW OF SYSTEMS: CONSTITUTIONAL: No fever, no chills. HEENT: Normal. ENDOCRINE: No weight gain, no weight loss. CVS: No angina symptoms. No CHF symptoms. No palpitations. No atypical chest pain for CAD. No shortness of breath. No PND, no orthopnea. RESPIRATORY: No cough, no hemoptysis. GI: No nausea, no vomiting. No abdominal pain. : No hematuria. No polyuria. MUSCULOSKELETAL: No joint swelling. PSYCHIATRIC: Not anxious. No depression. No suicidal thoughts. No homicidal thoughts. SKIN: Intact. No rash. PHYSICAL EXAMINATION: V/S: Blood pressure 129/72, respiratory rate 16, heart rate 79, temperature 98.4 and saturation 93% on 2 liters. HEENT: Normocephalic, atraumatic. Mucosa dry. NECK: Supple. No JVD, no carotid bruit. No lymphadenopathy. LUNGS:Decreased basilar fine crackles. No rales or rhonchi. HEART: S1, S2 normal. No S3. No murmur, gallop or regurgitation. ABDOMEN: Soft, nontender. Bowel sounds active. No rigidity. No rebound or guarding. No CVA tenderness. EXTREMITIES: No pedal edema. No clubbing or cyanosis MUSCULOSKELETAL: No joint swelling. NEUROLOGIC: Awake, alert, oriented times three. No focal deficit. LYMPHATIC: No lymph nodes palpable. SKIN: Intact. LABS: Potassium 2.9, chloride 93, bicarb 36, BUN 9, creatinine 0.84, CBC WBC 6.06, hgb 12.2, hct 36.5, plt count 237 ASSESSMENT: 1. Influenza B positive 2. Gastroenteritis 3. Severe hypokalemia 4. Community acquired pneumonia 5. Obesity 6. Diabetes 7. Dyslipidemia PLAN: 1. Will recheck the potassium in the morning 2. K-Dur 40meq PO daily 3. DUO NEBS 4. Solu-Medrol 5. Rocephin 1 gram daily TIME SPENT: More than 35 minutes MTDD
--- NOTE | 2017-08-14 15:13 | PN ---
DATE OF SERVICE: 08/13/17 SUBJECTIVE: The patient was admitted with severe hypokalemia, Flu B and right lower lobe pneumonia and COPD exacerbation. The patient breathing is better now. Diarrhea has stopped. Potassium came up to 3.2 today morning. Still having some coughing and hard time getting some phlegm out. REVIEW OF SYSTEMS: CONSTITUTIONAL: No fever, no chills. HEENT: Normal. ENDOCRINE: No weight gain, no weight loss. CVS: No angina symptoms. No CHF symptoms. No palpitations. No atypical chest pain for CAD. No shortness of breath. No PND, no orthopnea. RESPIRATORY: No cough, no hemoptysis. GI: No nausea, no vomiting. No abdominal pain. : No hematuria. No polyuria. MUSCULOSKELETAL: No joint swelling. PSYCHIATRIC: Not anxious. No depression. No suicidal thoughts. No homicidal thoughts. SKIN: Intact. No rash. PHYSICAL EXAMINATION: GENERAL: Obese lady laying in the bed and not in any distress HEENT: Normocephalic, atraumatic. Mucosa . NECK: Supple. No JVD, no carotid bruit. No lymphadenopathy. LUNGS: Mild expiratory wheezes present. No rales or rhonchi. HEART: S1, S2 normal. No S3. No murmur, gallop or regurgitation. ABDOMEN: Soft, nontender. Bowel sounds active. No rigidity. No rebound or guarding. No CVA tenderness. EXTREMITIES: No pedal edema. No clubbing or cyanosis MUSCULOSKELETAL: No joint swelling. NEUROLOGIC: Awake, alert, oriented times three. No focal deficit. LYMPHATIC: No lymph nodes palpable. SKIN: Intact. LABS: Sodium 142, potassium 3.2, chloride 94, bicarb 33, BUN 16, creatinine 0.87 and glucose 138. ASSESSMENT: 1. Influenza A positive. 2. Right lower lobe pneumonia, community acquired 3. COPD exacerbation secondary to the pneumonia 4. Hypoxemia 5. History of COPD 6. Obesity 7. Diabetes 8. Hypokalemia 9. Gastroenteritis PLAN: 1. Mucinex 600mg twice a day 2. DUO NEBS 3. Solu-Medrol 4. Continue Vancomycin and Rocephin 1 gram daily 5. Potassium 40meq K-Dur TIME SPENT: More than 35 minutes MTDD
[2017-08-14] MEDS ORDERED: K-DUR PO STA (16:16)
[2017-08-14] MEDS: ROCEPHIN 1 GM in SODIUM CHLORIDE 50 ML IV SCH (20:38)
[2017-08-14] MEDS: SYMBICORT 160-4.5 MCG INHALER IH SCH (20:38)
[2017-08-15] MEDS: DUONEB NEB SCH ×3 (01:00→11:21)
[2017-08-15] MEDS: ZOFRAN 4 MG/2 ML IVP SCH ×2 (06:58→16:25)
[2017-08-15] MEDS: VANCOMYCIN 1 GM in SODIUM CHLORIDE 250 ML IV SCH (08:53)
[2017-08-15] MEDS: ZESTRIL PO SCH (08:57)
[2017-08-15] MEDS: LIBRIUM PO SCH (08:57)
[2017-08-15] MEDS: MUCINEX PO SCH (08:57)
[2017-08-15] MEDS: HYDROCHLOROTHIAZIDE PO SCH (08:57)
[2017-08-15] MEDS: LIPITOR PO SCH (08:57)
[2017-08-15] MEDS: SYMBICORT 160-4.5 MCG INHALER IH SCH (09:02)
[2017-08-15] MEDS: SOLU-MEDROL 40 MG IVP SCH (09:03)
[2017-08-15 11:53] VITALS: BP 121/69; TEMP 98
--- NOTE | 2017-08-18 11:41 | PN ---
DATE OF SERVICE: 08/14/17 SUBJECTIVE: The patient was initially admitted for the Flu B and hypokalemia, gastroenteritis and pneumonia right lower lobe. Pneumonia is getting better. Had no episode of the diarrhea, still weak and some tiredness. Gets shortness of breath with minimal exertion. Did have a panic attack yesterday. The patient is very much worried about her COPD condition. REVIEW OF SYSTEMS: CONSTITUTIONAL: No fever, no chills. HEENT: Normal. ENDOCRINE: No weight gain, no weight loss. CVS: No angina symptoms. No CHF symptoms. No palpitations. No atypical chest pain for CAD. No shortness of breath. No PND, no orthopnea. RESPIRATORY: No cough, no hemoptysis. GI: No nausea, no vomiting. No abdominal pain. : No hematuria. No polyuria. MUSCULOSKELETAL: No joint swelling. PSYCHIATRIC: Not anxious. No depression. No suicidal thoughts. No homicidal thoughts. SKIN: Intact. No rash. PHYSICAL EXAMINATION: V/S: Blood pressure 125/73, respiratory rate 20, heart rate 67, temperature 98.2 with saturation 95 on 2 liters. GENERAL: Morbidly obese lady laying in the bed. HEENT: Normocephalic, atraumatic. Mucosa dry. NECK: Supple. No JVD, no carotid bruit. No lymphadenopathy. LUNGS: Decreased and basilar crackles. Clear to auscultation. No rales or rhonchi. HEART: S1, S2 normal. No S3. No murmur, gallop or regurgitation. ABDOMEN: Soft, nontender. Bowel sounds active. No rigidity. No rebound or guarding. No CVA tenderness. EXTREMITIES: No pedal edema. No clubbing or cyanosis MUSCULOSKELETAL: No joint swelling. NEUROLOGIC: Awake, alert, oriented times three. No focal deficit. LYMPHATIC: No lymph nodes palpable. SKIN: Intact. LABS: Sodium 142, potassium 3.2, chloride 95, bicarb 35, BUN 16, creatinine 0.83, glucose 146, WBC 9.89, hgb 12.0, hct 37.1, plt count 284. ASSESSMENT: 1. Influenza B positive. 2. Severe hypokalemia which is getting better 3. Right lower lobe pneumonia getting improved 4. COPD exacerbation secondary to the pneumonia 5. Obesity 6. Anxiety 7. Dyslipidemia PLAN: 1. Recheck the potassium 2. K-Dur 40 meq times two doses 3. Up and about walking 4. Librium 10mg twice a day TIME SPENT: More than 35 minutes MTDD
--- NOTE | 2017-08-18 15:44 | PN ---
DATE OF SERVICE: 08/14/17 SUBJECTIVE: The patient had one episode of the diarrhea. Potassium is 3.2. The patient was admitted with COPD exacerbation and lower lobe pneumonia. Worried about the COPD. Still getting short of breath with minimal exertion. REVIEW OF SYSTEMS: CONSTITUTIONAL: No fever, no chills. HEENT: Normal. ENDOCRINE: No weight gain, no weight loss. CVS: No angina symptoms. No CHF symptoms. No palpitations. No atypical chest pain for CAD. No shortness of breath. No PND, no orthopnea. RESPIRATORY: No cough, no hemoptysis. GI: No nausea, no vomiting. No abdominal pain. : No hematuria. No polyuria. MUSCULOSKELETAL: No joint swelling. PSYCHIATRIC: Not anxious. No depression. No suicidal thoughts. No homicidal thoughts. SKIN: Intact. No rash. PHYSICAL EXAMINATION: V/S: Blood pressure 125/68, respiratory rate 18, heart rate 68, temperature 97.8 with saturation 97 on 2 liters. HEENT: Normocephalic, atraumatic. Mucosa dry. NECK: Supple. No JVD, no carotid bruit. No lymphadenopathy. LUNGS: Decreased and basilar crackles right more than the left. No rales or rhonchi. HEART: S1, S2 normal. No S3. No murmur, gallop or regurgitation. ABDOMEN: Soft, nontender. Bowel sounds active. No rigidity. No rebound or guarding. No CVA tenderness. EXTREMITIES: No pedal edema. No clubbing or cyanosis MUSCULOSKELETAL: No joint swelling. NEUROLOGIC: Awake, alert, oriented times three. No focal deficit. LYMPHATIC: No lymph nodes palpable. SKIN: Intact. LABS: Sodium 146, potassium 3.2, chloride 95, bicarb 35, BUN 16, creatinine 0.83, WBC 9.8, hgb 12.0, hct 37.1, plt count 284. ASSESSMENT: 1. Hypokalemia 2. COPD exacerbation secondary to the right lower pneumonia 3. Influenza B positive 4. Obesity 5. COPD 6. Hypertension 7. Dyslipidemia PLAN: 1. Continue the Rocephin, Vancomycin, Solu-Medrol and IV fluids 2. Replace the 80mg of Potassium TIME SPENT: More than 35 minutes MTDD
--- NOTE | 2017-08-18 15:56 | DS ---
DATE OF SERVICE: 08/15/17 FINAL DIAGNOSIS: 1. [employer] exacerbation secondary to right lower lobe pneumonia and Influenza B 2. Acute gastroenteritis 3. Severe hypokalemia 4. History of Obesity 5. Sleep apnea 6. Hypertension 7. Dyslipidemia 8. Osteoarthritis 9. Anxiety disorder 10.Tonsillectomy 11.Hysterectomy DISCHARGE INSTRUCTIONS: Discharge the patient home. The patient was evaluated for the oxygen and she was qualified for the oxygen. She will be going on the oxygen at home. Continue home medications. MEDICATIONS AT DISCHARGE: ProAir HFA two puffs Q 4 hours PRN Lipitor Lisinopril/Hydrochlorothiazide Symbicort NEW PRESCRIPTIONS: Keflex 500mg twice a day for 5 days Prednisone 10mg PO twice a day for 5 Librium 10mg PO twice a day DIET INSTRUCTIONS: Cardiac and Healthy ACTIVITY: As much as tolerated SMOKING: Former Smoker DISEASE SPECIFIC EDUCATION: COPD needing for the pneumonia vaccination Obesity and weight loss been discussed and verbalized understanding. HOSPITAL COURSE: Mee Braxton 56 years old female came to the emergency room with cough and congestion, nausea, vomiting and diarrhea. She was found to have severe hypokalemia 2.7, Influenza B positive. CT chest showed the right lower lobe pneumonia. As patient was came after almost three to four days of onset of the symptoms so Tamiflu was not started. Started on the Vancomycin, Rocephin, Solu- Medrol 40mg Q 12 hours. With the given treatment gradually the patient started feeling better. Potassium being replacement with 40mg IV Potassium two days and 80mg Potassium PO. Magnesium being check which was not low which was 2.6. Gradually Potassium came up to 3.2, 3.1, 3.1 and 4.5. Repeat chest x-ray was getting better. Clinically the patient been improved and less short of breath and more active. At that time the patient being planned to be discharge home. Specific instruction was given continue and finished antibiotic. Antibiotic induced diarrhea and using Probiotics been discussed and verbalized understanding. The patient was getting short of breath and being evaluated by the Cardiopulmonary for the need for the oxygen. The patient was 94 and step two the patient was 81% with oxygen saturation higher than after the exercise 5- 10 minutes saturation went down to 81 and patient being qualified for the oxygen. Use of oxygen highly inflammable state of oxygen been discussed and verbalized understanding. TIME SPENT: MORE THAN 65 MINUTES MTDD
== END 2017-08-15 17:35 | disposition home or self-care (01) | DRG 194 ==
LOC: ED 13:57 → MEDSURG B 15:47
PROVIDERS: ADMIT Emergency Medicine; ATTEND Emergency Medicine
DX: J18.1 Lobar pneumonia, unspecified organism (principal); J44.1 Chronic obstructive pulmonary disease with (acute) exacerbation; J10.1 Influenza due to other identified influenza virus with other respiratory manifestations; K52.9 Noninfective gastroenteritis and colitis, unspecified; E87.6 Hypokalemia; E11.9 Type 2 diabetes mellitus without complications; E66.9 Obesity, unspecified; I10 Essential (primary) hypertension; G47.30 Sleep apnea, unspecified; E78.5 Hyperlipidemia, unspecified; M19.90 Unspecified osteoarthritis, unspecified site; F41.9 Anxiety disorder, unspecified; Z79.899 Other long term (current) drug therapy
CPT/HCPCS: 36415; 80053; 80202; 83605; 83735; 84132; 84145; 85007; 85025; 87040; 87502; 87651; 93005; 93010; 94640; 94761; 96365; 99284

== ENCOUNTER 2018-02-19 12:13 | Outpatient (CLI) | END 2018-02-19 12:14 | disposition home or self-care (01) | LOC: RHC-LAB 12:13 | PROVIDERS: ATTEND Emergency Medicine | DX: R73.9 Hyperglycemia, unspecified (principal); E78.5 Hyperlipidemia, unspecified; I10 Essential (primary) hypertension; J44.9 Chronic obstructive pulmonary disease, unspecified | CPT/HCPCS: 36415; 80053; 80061; 83036; 84443; 85025 ==

== ENCOUNTER 2018-10-22 09:58 | Outpatient (CLI) ==
--- NOTE | 2018-10-22 11:44 | MAMMO ---
EXAM: Digital screening mammogram with tomosynthesis HISTORY: Screening COMPARISON: 12/02/2016 FINDINGS: MLO and CC views of the right and left breast were performed. Tomosynthesis was performed . Computer aided detection utilized. The breast tissue is almost entirely fatty replaced. Benign b ilateral calcifications. There is no evidence for mass, asymmetry, distortion, or suspicious calcifi cations in either breast. IMPRESSION: 1. No mammographic evidence of malignancy in the right or left breast. 2. Annual screening mammogram is recommended in one year. BIRADS category 2, benign
== END 2018-10-22 09:59 | disposition home or self-care (01) ==
LOC: RAD 09:58
PROVIDERS: ATTEND Family Medicine
DX: Z12.31 Encounter for screening mammogram for malignant neoplasm of breast (principal)

== ENCOUNTER 2018-10-25 12:57 | Outpatient (CLI) ==
[2018-10-25 14:38] VITALS: BMI 52.4
== END 2018-10-25 12:58 | disposition home or self-care (01) ==
LOC: DIETCN 12:57
PROVIDERS: ATTEND Family Medicine
DX: Z68.43 Body mass index [BMI] 50.0-59.9, adult (principal)

== ENCOUNTER 2018-10-31 12:47 | Outpatient (CLI) ==
[2018-10-31] MEDS ORDERED: ALBUTEROL 0.083% NEB NEB STA (12:57)
== END 2018-10-31 12:48 | disposition home or self-care (01) ==
LOC: CAR 12:47
PROVIDERS: ATTEND Family Medicine
DX: J44.9 Chronic obstructive pulmonary disease, unspecified (principal)

== ENCOUNTER 2019-02-22 10:51 | Outpatient (RCR) ==
[2019-02-28 12:02] VITALS: BP 146/62
== END 2019-03-09 23:59 ==
LOC: PUL.REHAB 10:51
PROVIDERS: ATTEND Family Medicine
DX: J44.9 Chronic obstructive pulmonary disease, unspecified (principal)